=== PATIENT | male | born 1955 | race Caucasian/White ===

== ENCOUNTER 2024-11-29 11:26 | Outpatient (CLI) | payer MEDICARE, OTHER, SELFPAY ==
[2024-11-29 12:51] LABS: Albumin Level 4.7 g/dl (3.5-5.0); Chloride 102 mmol/L (98-107); Potassium 4.6 mmoL/L (3.5-5.1); Sodium 139 mmol/L (136-145)
[2024-11-29 12:54] LABS: Alanine Aminotransferase 37 U/L (12-78); Albumin/Globulin Ratio 2.2 (1.1-1.8); Alkaline Phosphatase 54 U/L (38-126); Anion Gap 13.6 mEq/L (5-15); Aspartate Amino Transferase 33 U/L (17-59); Bilirubin,Total 0.9 mg/dl (0.2-1.3); Blood Urea Nitrogen 27 mg/dl (9-20); Calcium 9.5 mg/dl (8.4-10.2); Carbon Dioxide 28 mmol/L (22.0-30.0); Estimated Glomerular Filt Rate 75 ml/min (>60); GFR (African American) 90 ML/MIN (>60); Globulin 2.1 g/dL (1.3-3.2); Glucose 105 mg/dl (74-100); Iron 98 ug/dL (49-181); Total Protein,Serum 6.8 g/dl (6.3-8.2)
[2024-11-29 13:03] LABS: Total Iron Binding Capacity 323 ug/dL (261-462)
[2024-11-29 13:29] LABS: Ferritin 192 ng/ml (17.9-464)
[2024-12-02 02:08] LABS: ALT (SGPT) P5P 33 IU/L (0-55); AST (SGOT) P5P 25 IU/L (0-40); Alpha 2-Macroglobulins, Qn 197 mg/dL (110-276); Apolipoprotein A-1 116 mg/dL (101-178); Bilirubin, Total 0.6 mg/dL (0.0-1.2); Cholesterol, Total 170 mg/dL (100-199); Fibrosis Score 0.42 (0.00-0.21); Fibrosis Stage F1-F2 (.); GGT 15 IU/L (0-65); Glucose 107 mg/dL (70-99); Haptoglobin 78 mg/dL (32-363); NASH Score 0.57 (0.00-0.25); Steatosis Score 0.46 (0.00-0.40); Triglycerides 109 mg/dL (0-149)
== END 2024-11-29 23:59 | disposition home or self-care (01) ==
LOC: LAB 11:29
PROVIDERS: Visit Provider Internal Medicine Gastroenterology
DX: Z14.8 Genetic carrier of other disease (principal); K76.0 Fatty (change of) liver, not elsewhere classified
CPT/HCPCS: 36415; 80053; 82728; 83540; 83550